=== PATIENT | female | born 1970 | race Caucasian/White ===

== ENCOUNTER 2018-01-23 10:52 | Emergency (ER) | payer OTHER ==
[2018-01-23 11:35] LABS: PLATELET COUNT 285 10^3/uL (150-400)
--- NOTE | 2018-01-23 11:36 | EDPHY ---
H & P Stated Complaint: Right lower quadrant pain. Time Seen by Provider: 01/23/18 11:16 HPI/ROS: CHIEF COMPLAINT: Right lower quadrant abdominal pain HISTORY OF PRESENT ILLNESS: Very pleasant 47-year-old female with no significant past medical history presents to the emergency department with approximately 1 hr of relatively sudden onset right lower quadrant abdominal pain. Patient was standing at work when pain began. She had an uneventful morning, ate breakfast, exercise, reports no heavy lifting at the gym. She reports she is not . No associated dysuria, frequency, urgency or flank pain. No history of kidney stones. No visible hematuria. No abnormal discharge and she denies STI risk. No associated nausea, vomiting, fever, chills and she was feeling well in the days prior. She does have a history of ovarian cyst and PCOS. She is approximately mid cycle on her menses. No vaginal bleeding. She did not take anything for pain prior to arrival and does not want any pain medications at this time. REVIEW OF SYSTEMS: Constitutional: No fever, no chills. Cardiovascular: No chest pain, no palpitations. Respiratory: No cough, no shortness of breath. Gastrointestinal: no vomiting, diarrhea. Genitourinary: No hematuria, dysuria, flank pain Musculoskeletal: No back pain. Skin: No rashes. PHYSICAL EXAM: General Appearance: Alert, oriented, appropriate, cooperative, NAD, well hydrated, non-toxic appearing, VSS, no hypoxia. HEENT Oropharynx clear is no erythema or exudates, no tonsillar hypertrophy or asymmetry. Dentition without abnormality. Respiratory: There are no retractions, lungs are clear to auscultation. Cardiac: Regular rate and rhythm, no murmurs or gallops. Gastrointestinal: Abdomen is soft, bowel sounds normal, tender to palpation of right lower quadrant, no guarding, rigidity, distention or focal peritoneal findings no masses/hernia Neurological: Alert and oriented x 3, CN 2-12 grossly intact, normal gait no ataxia, DTR's intact, normal sensation Skin: Warm, dry, no rashes, no nodules on palpation. Source: Patient Exam Limitations: No limitations - Personal History LMP (Females 10-55): 15-21 Days Ago Current Tetanus Diphtheria and Acellular Pertussis (TDAP): Yes - Medical/Surgical History Hx Asthma: Yes Hx Chronic Respiratory Disease: No Hx Diabetes: No Hx Cardiac Disease: No Hx Renal Disease: No Hx Cirrhosis: No Hx Alcoholism: No Hx HIV/AIDS: No Hx Splenectomy or Spleen Trauma: No Other PMH: Polycystic ovarys. Asthma - Family History Significant Family History: No pertinent family hx - Social History Smoking Status: Never smoked Constitutional: Initial Vital Signs Temperature (C) 36.8 C 01/23/18 11:00 Heart Rate 74 01/23/18 11:00 Respiratory Rate 16 01/23/18 11:00 Blood Pressure 104/64 01/23/18 11:00 O2 Sat (%) 97 01/23/18 11:00 O2 Delivery Mode Room Air Allergies/Adverse Reactions: No Known Allergies Allergy (Unverified 01/23/18 11:03) Home Medications: Medication Instructions Recorded Albuterol 01/23/18 Tamsulosin HCl [Flomax 0.4 MG (RX)] 0.4 mg PO DAILY #7 cap 01/23/18 Medical Decision Making - Diagnostics Imaging Results: Imaging Impressions Pelvic/Renal Ultrasound 01/23/18 11:31 Impression: 2.7 cm simple appearing cyst left ovary. No evidence for torsion otherwise normal pelvic ultrasound. Results called and discussed with James Oreilly PA-C, at 01/23/2018 12:47. Imaging: Discussed imaging studies w/ weight caller Radiologist ED Course/Re-evaluation: Patient was seen independently with establish practice protocols. Secondary supervising physician at the time of evaluation with Dr. Dao Ross. 1250: Patient reassessed, pain-free at this time. Ultrasound results discussed with her. This was reviewed with Dr. Seals from Radiology, left ovarian cyst measuring 2.3 cm with good ovarian flow. No abnormal right-sided findings. Urine shows trace hematuria, no pyuria or bacteriuria. Labs reassuring, no renal insufficiency. CT discussed and offered patient has declined at this time. Abdomen remains soft with no focal peritoneal findings. We will plan to discharge to PCP with Flomax and warning signs for return discussed. 47-year-old female presents to the emergency department with relatively acute onset right lower quadrant pain while at work today. No associated nausea, vomiting, diarrhea, dysuria, flank pain, vaginal bleeding, discharge. Patient reports a history of ovarian cyst. Pelvic ultrasound reveals a 2.3 cm left ovarian cyst with no evidence of torsion, otherwise normal ultrasound with no evidence of right ovarian cyst. Labs were reassuring, no pyuria or bacteriuria, but she does have trace hematuria. On reassessment patient's pain was completely resolved. This could have been a small ureterolithiasis. CT scan was discussed and offered, patient does not wish to pursue any additional imaging studies at this time. Flomax as prescribed, PCP follow-up encouraged, strainer provided, warning signs to return to ER sooner and person and discharge papers. Differential Diagnosis: Differential diagnosis female abdominal pain includes but not limited to acute appendicitis, ovarian torsion, ovarian cyst, PID, ureterolithiasis, UTI, pyelonephritis - Data Points Laboratory Results: Laboratory Results 01/23/18 11:25 01/23/18 11:25 01/23/18 01/23/18 01/23/18 11:37 11:37 11:25 WBC RBC Hgb Hct MCV MCH MCHC RDW Plt Count MPV Neut % (Auto) Lymph % (Auto) [place] % (Auto) Eos % (Auto) Baso % (Auto) Nucleat RBC Rel Count Absolute Neuts (auto) Absolute Lymphs (auto) Absolute Monos (auto) Absolute Eos (auto) Absolute Basos (auto) Absolute Nucleated RBC Immature Gran % Immature Gran # Sodium 137 mEq/L mEq/L (135-145) Potassium 4.5 mEq/L mEq/L (3.3-5.0) Chloride 102 mEq/L mEq/L (97-110) Carbon Dioxide 22 mEq/l mEq/l (22-31) Anion Gap 13 mEq/L mEq/L (6-14) BUN 15 mg/dL mg/dL (7-23) Creatinine 0.7 mg/dL mg/dL (0.6-1.0) Estimated GFR > 60 Glucose 98 mg/dL mg/dL (70-100) Calcium 9.7 mg/dL mg/dL (8.5-10.4) Urine RBC 3-5 /hpf H /hpf (0-3) Urine WBC 1-3 /hpf /hpf (0-3) Ur Epithelial Cells TRACE /lpf /lpf (NONE-1+) Urine Bacteria TRACE /hpf H /hpf (NONE SEEN) Urine Mucus TRACE /lpf /lpf (NONE-1+) Urine Test NEGATIVE 01/23/18 11:25 WBC 6.77 10^3/uL 10^3/uL (3.80-9.50) RBC 4.84 10^6/uL 10^6/uL (4.18-5.33) Hgb 13.9 g/dL g/dL (12.6-16.3) Hct 40.9 % % (38.0-47.0) MCV 84.5 fL fL (81.5-99.8) MCH 28.7 pg pg (27.9-34.1) MCHC 34.0 g/dL g/dL (32.4-36.7) RDW 13.1 % % (11.5-15.2) Plt Count 285 10^3/uL 10^3/uL (150-400) MPV 10.3 fL fL (8.7-11.7) Neut % (Auto) 67.4 % % (39.3-74.2) Lymph % (Auto) 23.0 % % (15.0-45.0) [place] % (Auto) 7.1 % % (4.5-13.0) Eos % (Auto) 1.5 % % (0.6-7.6) Baso % (Auto) 0.9 % % (0.3-1.7) Nucleat RBC Rel Count 0.0 % % (0.0-0.2) Absolute Neuts (auto) 4.56 10^3/uL 10^3/uL (1.70-6.50) Absolute Lymphs (auto) 1.56 10^3/uL 10^3/uL (1.00-3.00) Absolute Monos (auto) 0.48 10^3/uL 10^3/uL (0.30-0.80) Absolute Eos (auto) 0.10 10^3/uL 10^3/uL (0.03-0.40) Absolute Basos (auto) 0.06 10^3/uL 10^3/uL (0.02-0.10) Absolute Nucleated RBC 0.00 10^3/uL 10^3/uL (0-0.01) Immature Gran % 0.1 % % (0.0-1.1) Immature Gran # 0.01 10^3/uL 10^3/uL (0.00-0.10) Sodium Potassium Chloride Carbon Dioxide Anion Gap BUN Creatinine Estimated GFR Glucose Calcium Urine RBC Urine WBC Ur Epithelial Cells Urine Bacteria Urine Mucus Urine Test Departure - Departure Disposition: Home, Routine, Self-Care Clinical Impression: Abdominal pain Qualifiers: Abdominal location: right lower quadrant Qualified Code(s): R10.31 - Right lower quadrant pain Hematuria Qualifiers: Hematuria type: unspecified type Qualified Code(s): R31.9 - Hematuria, unspecified Condition: Good Instructions: Hematuria (ED), Acute Abdominal Pain (ED) Additional Instructions: Urine labs were reassuring, no elevation in your infection finding count, normal kidney function, no electrolyte imbalance. Urine did not show signs of infection however you did have a small amount of blood in the urine. This may be indicative of a small kidney stone. Pelvic ultrasound was read by the radiologist showing a 2.3 cm left ovarian cyst with no evidence of ovarian torsion. There were no abnormal findings on the right. CT scan was discussed and offered which she will have declined at this time. Flomax was prescribed, we recommend increasing hydration, using 600 mg ibuprofen for pain control every 6 hr as needed with food in large glass of water. Please follow up with her primary care doctor on Friday. Return to the emergency department sooner for worsening pain, inability to urinate, painful urination, flank pain, fevers greater than 100.4, or any other concern. Referrals: FRANSISCO OLIVEIRA [Other] - As per Instructions Prescriptions: Tamsulosin HCl [Flomax 0.4 MG (RX)] 0.4 mg PO DAILY #7 cap Print Language: Urdu
[2018-01-23 13:10] VITALS: BP 109/54
== END 2018-01-23 13:10 | disposition home or self-care (01) ==
DX: R10.31 Right lower quadrant pain (principal); R31.9 Hematuria, unspecified; N83.202 Unspecified ovarian cyst, left side